=== PATIENT | male | born 1970 ===

== ENCOUNTER 2024-08-01 05:27 | Day surgery (SDC) | payer OTHER ==
[2024-07-24 12:36] VITALS: BP 150/86
[~2024-08-01] VITALS: Ht 185.4 cm; Wt 108.9 kg
[2024-08-01] MEDS ORDERED: CEFAZOLIN SODIUM 1,000 MG VIAL ONE ×2 (07:50→14:55)
[2024-08-01] MEDS ORDERED: SUGAMMADEX SODIUM 200 MG/2 ML VIAL IV ONE (12:47)
[2024-08-01] MEDS ORDERED: CEFAZOLIN SODIUM 1,000 MG VIAL IV SCH (14:15)
[2024-08-01] MEDS ORDERED: FAMOTIDINE/PF 20 MG/10 ML SYRINGE IV SCH (14:15)
[2024-08-01] MEDS ORDERED: MORPHINE SULFATE 4 MG/ML VIAL IV ONE ×2 (14:45→16:00)
[2024-08-01] MEDS ORDERED: FAMOTIDINE/PF 20 MG/2 ML VIAL ONE (14:56)
[2024-08-01] MEDS ORDERED: hydrALAZINE HCL 20 MG VIAL ONE (16:26)
== END 2024-08-01 17:55 | disposition home or self-care (01) ==
LOC: CIR.AMB 05:27
PROVIDERS: ATTEND Specialist
DX: K40.30 Unilateral inguinal hernia, with obstruction, without gangrene, not specified as recurrent (principal)